=== PATIENT | male | born 1995 | race Caucasian/White ===

== ENCOUNTER 2019-12-15 19:05 | Emergency (ER) | payer OTHER ==
[~2019-12-15] VITALS: Ht 182.9 cm; Wt 97.5 kg
[2019-12-15 19:30] VITALS: BP_SYST 144
--- NOTE | 2019-12-15 19:30 | NUR ---
Pt ambulatory to bed 6 for evaluation
--- NOTE | 2019-12-15 20:05 | NUR ---
PT IN BED WITH COMPLAINT OF BEING EXPOSED TO COVID-19. PT DENIES ANY SYMPTOMS.
[2019-12-15 20:30] VITALS: BP_SYST 140
--- NOTE | 2019-12-15 20:32 | NUR ---
COVID-19 TEST COMPLETED AT THIS TIME. AT [facility]
--- NOTE | 2019-12-15 21:06 | NUR ---
PT REJI. DIDN'T INFORM ANYONE OF LEAVING OR REQUESTING TO LEAVE
== END 2019-12-15 21:06 | disposition left against medical advice (07) ==
LOC: SED 19:05
DX: Z20.828 Contact with and (suspected) exposure to other viral communicable diseases (principal)
CPT/HCPCS: 99283; U0003